=== PATIENT | male | born 1995 | race Two or more races ===

== ENCOUNTER 2018-01-24 19:08 | Emergency (ER) | payer MEDICAID, OTHER ==
[~2018-01-24] VITALS: Ht 175.3 cm; Wt 69.0 kg
[2018-01-24 19:19] VITALS: BP 131/70
== END 2018-01-25 | disposition left against medical advice (07) ==
LOC: ER 19:08
DX: Z53.21 Procedure and treatment not carried out due to patient leaving prior to being seen by health care provider (principal)